=== PATIENT | male | born 1970 | race Caucasian/White ===

== ENCOUNTER 2017-07-30 21:34 | Inpatient (IN) | payer OTHER ==
[~2017-07-30] VITALS: Ht 175.3 cm; Wt 86.9 kg
[~2017-07-30 21:34] MED LIST: ALEVE220 M2 PO; COLD MULTI SYM PO; EPHEDRINE; MOTRIN800 MG PO; NO HOME MEDS; NORCO 5/3251 TABLET PO; TYLENOL COLD M240 ML PO; TYLENOL REGULA325 MG PO
[2017-07-30] MEDS ORDERED: MORPHABOND ER15 MG PO (22:38)
[2017-07-30] MEDS ORDERED: PERCOCET 10/1 TABLET PO (22:38)
[2017-07-30] MEDS ORDERED: ZESTORETIC 20-1 EAC1 PO (22:38)
[2017-07-30] MEDS ORDERED: MOBIC15 MG PO (22:39)
[2017-07-30 22:54] LABS: HEMATOCRIT 34.9 % (38.0-50.0); MCH 31.9 PG (29.0-34.0); MCHC 35.2 G/DL (30.0-36.0); MCV 90.6 FL (86-99); MEAN PLAT.VOLUME 10.1 uM^3 (9.0-12.4); PLATELET COUNT 313 K/uL (156-360); RBC DIS.WIDTH-CV 11.7 % (11.8-14.6); RBC DIS.WIDTH-SD 38.9 % (39-53); RED BLOOD COUNT 3.85 M/uL (4.00-5.50); WHITE BLOOD COUNT 15.5 K/uL (4.1-10.2)
[2017-07-30 23:05] LABS: CHLORIDE 86 mEq/L (99-109); SODIUM 128 mEq/L (136-147)
[2017-07-30 23:07] LABS: GLUCOSE 112 mg/dL (70-99)
[2017-07-30 23:08] LABS: ANION GAP 33 MEQ/L (2-14)
[2017-07-30 23:10] LABS: GFR ESTIMATE (CALCULATED) 5 mL/min/; SERUM ETHYL ALCOHOL < 10 mg/dL
[2017-07-30 23:33] LABS: UREA NITROGEN (BUN) 106 mg/dL (9-23)
[2017-07-30 23:34] LABS: POTASSIUM 6.4 mEq/L (3.7-5.4)
[2017-07-31 01:13] LABS: CHLORIDE 92 mEq/L (99-109); POTASSIUM 5.9 mEq/L (3.7-5.4); SODIUM 129 mEq/L (136-147)
[2017-07-31 01:15] LABS: GLUCOSE 111 mg/dL (70-99)
[2017-07-31 01:16] LABS: ANION GAP 28 MEQ/L (2-14)
[2017-07-31 01:19] LABS: GFR ESTIMATE (CALCULATED) 5 mL/min/
[2017-07-31 01:25] LABS: UREA NITROGEN (BUN) 106 mg/dL (9-23)
[2017-07-31 02:08] LABS: ADD MIUA? YES; BILIRUBIN NEGATIVE; BLOOD MODERATE; COLOR AMBER ((YELLOW)); GLUCOSE (STRIP) NEGATIVE; KETONES NEGATIVE; LEUKOCYTES SMALL; NITRITE NEGATIVE; PROTEIN (STRIP) 30; SPECIFIC GRAVITY 1.021 (1.000-1.030); UROBILINOGEN 0.2 MG/DL (0.2-1.0)
[2017-07-31 02:25] LABS: BASE EXCESS -17.2 mEq/L (-3 to +3); BICARBONATE 10.6 mEq/L (22-26); CARBOXY HGB 2.3 % (0-5); METHEMOGLOBIN 0.9 % (0-1.5); PCO2 31 mm Hg (35-45); PO2 99 mm Hg (80-100)
[2017-07-31 02:26] LABS: COMMENTS - BLOOD GASES C+A+; DEVICE ROOM AIR; SITE RR; pH 7.14 (7.35-7.45)
[2017-07-31 02:39] LABS: RED BLOOD CELLS 0-5 /HPF (0-5)
[2017-07-31 02:46] LABS: EPITHELIAL CELLS 1+ /HPF; MUCUS RARE /LPF; WHITE BLOOD CELLS 20-30 /HPF (0-5)
[2017-07-31 02:47] LABS: AMORPHOUS URATES CRYSTALS FEW; BACTERIA 2+ /HPF; CASTS PRESENT /LPF; CRYSTALS PRESENT; HYALINE CASTS 0-5 /LPF; OTHER SPERM CELLS; UCUL ADDED? YES
[2017-07-31 02:49] LABS: CREATINE KINASE 10155 IU/L (1-294)
[2017-07-31 04:40] LABS: SALICYLATE < 5.0 MG/DL (15-30); URIC ACID 14.6 mg/dL (3.1-9.2)
[2017-07-31 05:37] LABS: METH RESISTANT S AUREUS PCR NEGATIVE (NEGATIVE)
[2017-07-31 05:41] LABS: PROBE CHECK PASS; SPECIMEN PROCESSING CONTROL PASS
[2017-07-31 06:50] LABS: CREATINE KINASE 7697 IU/L (1-294)
[2017-07-31 07:00] VITALS: BP 118/61
[2017-07-31 08:00] VITALS: BP 100/60
[2017-07-31 08:09] LABS: ANION GAP 26 MEQ/L (2-14); CHLORIDE 90 MEQ/L (99-109); GFR ESTIMATE (CALCULATED) 5 mL/min/; GLUCOSE 123 mg/dL (70-99); POTASSIUM 5.3 MEQ/L (3.7-5.4); SODIUM 131 MEQ/L (136-147); UREA NITROGEN (BUN) 100 mg/dL (9-23)
[2017-07-31 09:00] VITALS: BP 102/39
[2017-07-31 10:00] VITALS: BP 111/58
[2017-07-31 16:16] LABS: ANION GAP 22 MEQ/L (2-14); CHLORIDE 86 MEQ/L (99-109); GLUCOSE 115 mg/dL (70-99); SAMPLE HEMOLYSIS CHECK 0; SAMPLE ICTERIC CHECK 0; SAMPLE LIPEMIA CHECK 0; SODIUM 131 MEQ/L (136-147); UREA NITROGEN (BUN) 93 mg/dL (9-23)
[2017-07-31 16:19] LABS: GFR ESTIMATE (CALCULATED) 7 mL/min/; POTASSIUM 3.6 MEQ/L (3.7-5.4)
[2017-07-31] MEDS ORDERED: ANTABUSE250 MG PO (16:28)
[2017-07-31 17:00] VITALS: BP 116/59
[2017-07-31 20:00] VITALS: BP 112/68
[2017-08-01] VITALS (8 sets, daily range): BP systolic 113–169; BP diastolic 63–78
[2017-08-01 05:34] LABS: HEMATOCRIT 31.7 % (38.0-50.0); MCH 32.9 PG (29.0-34.0); MCHC 36.6 G/DL (30.0-36.0); MCV 89.8 FL (86-99); MEAN PLAT.VOLUME 10.2 uM^3 (9.0-12.4); PLATELET COUNT 243 K/uL (156-360); RBC DIS.WIDTH-CV 11.9 % (11.8-14.6); RBC DIS.WIDTH-SD 38.5 % (39-53); RED BLOOD COUNT 3.53 M/uL (4.00-5.50); WHITE BLOOD COUNT 11.2 K/uL (4.1-10.2)
[2017-08-01 06:16] LABS: ALKALINE PHOSPHATASE 114 IU/L (3-129); ANION GAP 15 MEQ/L (2-14); CHLORIDE 93 MEQ/L (99-109); MAGNESIUM 2.2 mg/dl (1.3-2.7); POTASSIUM 3.2 MEQ/L (3.7-5.4); SAMPLE HEMOLYSIS CHECK 0; SAMPLE ICTERIC CHECK 0; SAMPLE LIPEMIA CHECK 0; SODIUM 135 MEQ/L (136-147); TOTAL BILIRUBIN 0.4 MG/DL (0.0-1.0); UREA NITROGEN (BUN) 82 mg/dL (9-23)
[2017-08-01 06:17] LABS: GFR ESTIMATE (CALCULATED) 16 mL/min/; GLUCOSE 80 mg/dL (70-99)
[2017-08-01 07:37] LABS: EOSINOPHIL (%) 1.1 % (0-5); EOSINOPHIL COUNT 0.1 K/uL (0-0.3); HEMATOLOGY COMMENT 1 SMEAR COMPATIBLE; IMMATURE GRANULOCYTE (%) 0.5 % (0.0-0.7); IMMATURE GRANULOCYTE COUNT 0.1 K/uL; INSTRUMENT ABS NEUTROPHIL CT 9.5 K/uL; LYMPHOCYTE COUNT 0.9 K/uL (1.0-2.8); MONOCYTE (%) 5.6 % (3-12); MONOCYTE COUNT 0.6 K/uL (0-0.8); NEUTROPHIL (%) 84.6 % (45-76); NEUTROPHIL COUNT 9.5 K/uL (1.8-6.4)
[2017-08-02 06:54] LABS: EOSINOPHIL (%) 1.2 % (0-5); EOSINOPHIL COUNT 0.1 K/uL (0-0.3); IMMATURE GRANULOCYTE (%) 0.4 % (0.0-0.7); IMMATURE GRANULOCYTE COUNT 0.1 K/uL; INSTRUMENT ABS NEUTROPHIL CT 9.3 K/uL; MCH 31.4 PG (29.0-34.0); MCHC 33.9 G/DL (30.0-36.0); MCV 92.4 FL (86-99); MEAN PLAT.VOLUME 10.2 uM^3 (9.0-12.4); MONOCYTE (%) 7.3 % (3-12); MONOCYTE COUNT 0.8 K/uL (0-0.8); NEUTROPHIL (%) 82.1 % (45-76); NEUTROPHIL COUNT 9.3 K/uL (1.8-6.4); PLATELET COUNT 242 K/uL (156-360); RBC DIS.WIDTH-CV 11.9 % (11.8-14.6); RBC DIS.WIDTH-SD 40.5 % (39-53); RED BLOOD COUNT 3.57 M/uL (4.00-5.50); WHITE BLOOD COUNT 11.3 K/uL (4.1-10.2)
[2017-08-02 08:01] VITALS: BP 129/72
[2017-08-02 08:17] LABS: ANION GAP 8 MEQ/L (2-14); CHLORIDE 100 MEQ/L (99-109); GLUCOSE 86 mg/dL (70-99); MAGNESIUM 2.2 mg/dl (1.3-2.7); SAMPLE HEMOLYSIS CHECK 0; SAMPLE ICTERIC CHECK 0; SAMPLE LIPEMIA CHECK 0; SODIUM 140 MEQ/L (136-147)
[2017-08-02 08:21] LABS: GFR ESTIMATE (CALCULATED) > 59 mL/min/; POTASSIUM 4.2 MEQ/L (3.7-5.4); UREA NITROGEN (BUN) 36 mg/dL (9-23)
[2017-08-02 09:19] LABS: CREATINE KINASE 838 IU/L (1-294)
[2017-08-02 11:46] VITALS: BP 127/86
[2017-08-02 16:00] VITALS: BP 144/91
[2017-08-02 19:56] VITALS: BP 117/79
[2017-08-02 23:10] VITALS: BP 157/82
[2017-08-03 06:53] LABS: EOSINOPHIL COUNT 0.2 K/uL (0-0.3); HEMATOCRIT 32.6 % (38.0-50.0); IMMATURE GRANULOCYTE (%) 0.7 % (0.0-0.7); IMMATURE GRANULOCYTE COUNT 0.1 K/uL; INSTRUMENT ABS NEUTROPHIL CT 7.8 K/uL; LYMPHOCYTE COUNT 1.5 K/uL (1.0-2.8); MCH 31.5 PG (29.0-34.0); MCHC 33.4 G/DL (30.0-36.0); MCV 94.2 FL (86-99); MEAN PLAT.VOLUME 10.2 uM^3 (9.0-12.4); MONOCYTE COUNT 1.1 K/uL (0-0.8); NEUTROPHIL (%) 73.2 % (45-76); NEUTROPHIL COUNT 7.8 K/uL (1.8-6.4); PLATELET COUNT 221 K/uL (156-360); RBC DIS.WIDTH-CV 11.9 % (11.8-14.6); RBC DIS.WIDTH-SD 40.8 % (39-53); RED BLOOD COUNT 3.46 M/uL (4.00-5.50); WHITE BLOOD COUNT 10.7 K/uL (4.1-10.2)
[2017-08-03 07:17] LABS: ANION GAP 7 MEQ/L (2-14); CHLORIDE 99 MEQ/L (99-109); CREATINE KINASE 170 IU/L (1-294); GFR ESTIMATE (CALCULATED) > 59 mL/min/; GLUCOSE 82 mg/dL (70-99); POTASSIUM 4.5 MEQ/L (3.7-5.4); SAMPLE HEMOLYSIS CHECK 2; SAMPLE ICTERIC CHECK 0; SAMPLE LIPEMIA CHECK 0; SODIUM 137 MEQ/L (136-147)
[2017-08-03 07:19] LABS: MAGNESIUM 1.7 mg/dl (1.3-2.7); UREA NITROGEN (BUN) 13 mg/dL (9-23)
[2017-08-03 08:04] VITALS: BP 139/86
[2017-08-03 12:10] VITALS: BP 144/89
[2017-08-03] MEDS ORDERED: AMLODIPINE BESYL5 MG PO (13:17)
[2017-08-03] MEDS ORDERED: OYSTER SHELL 51 EACH PO (13:18)
[2017-08-03] MEDS ORDERED: TYLENOL REGULA325 MG PO (13:18)
[2017-08-03] MEDS ORDERED: NEUTRA-PHOS,1 PACKET PO (13:19)
[2017-08-03] MEDS ORDERED: HYDROCORTISON28.4 GM TP (13:19)
== END 2017-08-03 16:08 | disposition home or self-care (01) | DRG 683 ==
LOC: EME 21:34 → 3EAST 07-31 02:10 → EDOF 07-31 02:10 → ENRESERV 07-31 02:13 → 4WEST 07-31 03:49 → ENRESERV 08-01 12:14 → 3EAST 08-01 15:26
PROVIDERS: Emergency Medicine; Internal Medicine; Internal Medicine Nephrology
DX: N17.9 Acute kidney failure, unspecified (principal); T39.395A Adverse effect of other nonsteroidal anti-inflammatory drugs [NSAID], initial encounter; M62.82 Rhabdomyolysis; E87.2 Acidosis; E87.5 Hyperkalemia; E83.51 Hypocalcemia; E86.0 Dehydration; E87.6 Hypokalemia; E83.39 Other disorders of phosphorus metabolism; I95.9 Hypotension, unspecified; Z91.19 Patient's noncompliance with other medical treatment and regimen; N28.1 Cyst of kidney, acquired; F10.10 Alcohol abuse, uncomplicated; I10 Essential (primary) hypertension; G89.29 Other chronic pain; M51.26 Other intervertebral disc displacement, lumbar region; M19.90 Unspecified osteoarthritis, unspecified site; F31.9 Bipolar disorder, unspecified; F17.210 Nicotine dependence, cigarettes, uncomplicated; F41.9 Anxiety disorder, unspecified; Z81.1 Family history of alcohol abuse and dependence
CPT/HCPCS: 36600; 76770; 80048; 80048 91; 80053; 81003; 82330; 82550; 82550 91; 82693 90; 82803; 83605; 83735; 83930; 83935; 84100; 84550; 85025; 85027; 87040; 87086; 87641; 89190; 93005; 99281; 99285; G0480; J0610; J3480; J7030; J7050; J7070

== ENCOUNTER 2017-11-23 20:04 | Inpatient (IN) | payer OTHER ==
[~2017-11-23] VITALS: Ht 175.3 cm; Wt 91.4 kg
[~2017-11-23 20:04] MED LIST changes: +AMLODIPINE BESYL5 MG PO; +ANTABUSE250 MG PO; +HYDROCORTISON28.4 GM TP; +MOBIC15 MG PO; +MORPHABOND ER15 MG PO; +NEUTRA-PHOS,1 PACKET PO; +OYSTER SHELL 51 EACH PO; +PERCOCET 10/1 TABLET PO; +ZESTORETIC 20-1 EAC1 PO
[2017-11-23 21:05] LABS: HEMOGLOBIN 13.4 G/DL (12.5-16.6); MCH 31.8 PG (29.0-34.0); MCHC 34.4 G/DL (30.0-36.0); MCV 92.4 FL (86-99); PLATELET COUNT 262 K/uL (156-360); RBC DIS.WIDTH-CV 12.5 % (11.8-14.6); RBC DIS.WIDTH-SD 42.5 % (39-53); RED BLOOD COUNT 4.22 M/uL (4.00-5.50); WHITE BLOOD COUNT 9.5 K/uL (4.1-10.2)
[2017-11-23 21:15] LABS: CHLORIDE 109 mEq/L (99-109); POTASSIUM 3.9 mEq/L (3.7-5.4); SODIUM 140 mEq/L (136-147)
[2017-11-23 21:17] LABS: GLUCOSE 87 mg/dL (70-99)
[2017-11-23 21:20] LABS: SERUM ETHYL ALCOHOL 335 mg/dL
[2017-11-23 21:21] LABS: CREATININE 0.8 mg/dL (0.6-1.3); GFR ESTIMATE (CALCULATED) > 59 mL/min/ (58.99-99999)
[2017-11-23 21:22] LABS: UREA NITROGEN (BUN) 8 mg/dL (9-23)
[2017-11-23 22:07] LABS: AMPHETAMINE NEGATIVE (500 ng/mL); BARBITURATES NEGATIVE (200 ng/mL); BENZODIAZEPINES NEGATIVE (150 ng/mL); BUPRENORPHINE NEGATIVE (10 ng/mL); COCAINE NEGATIVE (150 ng/mL); METHADONE NEGATIVE (200 ng/mL); METHAMPHETAMINE PRESUMPTIVE POSITIVE (500 ng/mL); OPIATES (MORPHINE) NEGATIVE (100 ng/mL); OXYCODONE NEGATIVE (100 ng/mL); PHENCYCLIDINE NEGATIVE (25 ng/mL); PROPOXYPHENE NEGATIVE (300 ng/mL); THC CANNABINOIDS NEGATIVE (50 ng/mL); TRICYCLIC ANTIDEPRESSANTS NEGATIVE (300 ng/mL)
[2017-11-24 16:32] VITALS: BP 128/82
[2017-11-24 19:32] VITALS: BP 116/72
[2017-11-24 23:10] VITALS: BP 136/93
[2017-11-25 03:42] VITALS: BP 133/90
[2017-11-25 06:20] LABS: HEMATOCRIT 38.3 % (38.0-50.0); HEMOGLOBIN 12.5 G/DL (12.5-16.6); MCH 30.7 PG (29.0-34.0); MCHC 32.6 G/DL (30.0-36.0); MCV 94.1 FL (86-99); PLATELET COUNT 226 K/uL (156-360); RBC DIS.WIDTH-CV 12.3 % (11.8-14.6); RBC DIS.WIDTH-SD 42.8 % (39-53); RED BLOOD COUNT 4.07 M/uL (4.00-5.50)
[2017-11-25 07:21] LABS: CHLORIDE 106 MEQ/L (99-109); POTASSIUM 4.4 MEQ/L (3.7-5.4); SODIUM 138 MEQ/L (136-147)
[2017-11-25 07:26] LABS: CREATININE 0.7 MG/DL (0.6-1.3); GFR ESTIMATE (CALCULATED) > 59 mL/min/ (58.99-99999); GLUCOSE 82 mg/dL (70-99); UREA NITROGEN (BUN) 13 mg/dL (9-23)
[2017-11-25 07:53] VITALS: BP 137/89
[2017-11-25 11:46] VITALS: BP 134/77
[2017-11-25] MEDS ORDERED: ANTABUSE250 MG PO (12:14)
[2017-11-25] MEDS ORDERED: MOBIC15 MG PO (12:15)
[2017-11-25] MEDS ORDERED: ANTI-ITCH28 G1 TP (12:15)
[2017-11-25] MEDS ORDERED: NORVASC5 MG PO (12:15)
== END 2017-11-25 15:53 | disposition home or self-care (01) | DRG 897 ==
LOC: EME 20:04 → EDOF 11-24 13:40 → 3EAST 11-24 13:40 → ENRESERV 11-24 14:28 → 3EAST 11-24 16:08
PROVIDERS: Emergency Medicine Emergency Medical Services; Family Medicine
DX: F10.229 Alcohol dependence with intoxication, unspecified (principal); R45.851 Suicidal ideations; F31.9 Bipolar disorder, unspecified; J43.9 Emphysema, unspecified; I10 Essential (primary) hypertension; G89.4 Chronic pain syndrome; F10.239 Alcohol dependence with withdrawal, unspecified; Y90.8 Blood alcohol level of 240 mg/100 ml or more; Z91.19 Patient's noncompliance with other medical treatment and regimen; F17.200 Nicotine dependence, unspecified, uncomplicated; Z59.0 Homelessness; Z82.49 Family history of ischemic heart disease and other diseases of the circulatory system
CPT/HCPCS: 80048; 85027; 90839; G0480; J1630; J2060; J7040

== ENCOUNTER 2018-06-16 14:44 | Emergency (ER) | payer OTHER ==
[~2018-06-16] VITALS: Ht 172.7 cm; Wt 99.7 kg
[~2018-06-16 14:44] MED LIST changes: +ANTI-ITCH28 G1 TP; +NORVASC5 MG PO
[2018-06-16 15:10] VITALS: BP 130/83
== END 2018-06-16 15:11 ==
LOC: EME 14:44
DX: F10.129 Alcohol abuse with intoxication, unspecified (principal); J44.9 Chronic obstructive pulmonary disease, unspecified; F17.200 Nicotine dependence, unspecified, uncomplicated
CPT/HCPCS: 99281; 99284